=== PATIENT | male | born 1980 | race Caucasian/White ===

== ENCOUNTER 2020-06-07 00:04 | Inpatient (IN) | payer OTHER ==
[~2020-06-07] VITALS: Ht 175.3 cm; Wt 86.2 kg
--- NOTE | 2020-06-07 00:20 | NUR ---
DR. RAJAN AT BEDSIDE FOR MSE.
[2020-06-07] MEDS ORDERED: IBUPROFEN 800 MG TABLET PO ONE (01:15)
[2020-06-07] MEDS ORDERED: IBUPROFEN 800 MG TABLET ONE (01:22)
[2020-06-07] MEDS ORDERED: IV NORMAL SALINE 1000 ML BAG IV ONE ×2 (02:15→03:00)
[2020-06-07 03:34] LABS: CREATININE 0.9 mg/dL (0.6-1.3); POTASSIUM 3.9 mmol/L (3.5-5.1)
[2020-06-07 03:36] LABS: BASOPHILS # (AUTO) 0.1 K/uL (0.0-8.0); BASOPHILS % (AUTO) 0.4 % (0.0-2.0); EOSINOPHILS % (AUTO) 0.3 % (0.0-7.0); ETHANOL < 3 MG/DL (0-0); HEMATOCRIT 40.8 % (36.7-47.1); HEMOGLOBIN 13.8 g/dL (12.5-16.3); LYMPHOCYTES # (AUTO) 1.2 K/uL (20.0-40.0); LYMPHOCYTES % (AUTO) 8.4 % (20.5-51.5); MEAN CORPUSCULAR HEMOGLOBIN 30.6 uug (23.8-33.4); MEAN CORPUSCULAR HGB CONC 34 g/dL (32.5-36.3); MEAN CORPUSCULAR VOLUME 90.7 fL (73.0-96.2); MONOCYTES # (AUTO) 0.6 K/uL (2.0-10.0); NEUTROPHILS # (AUTO) 12.6 K/uL (1.8-8.9); NEUTROPHILS % (AUTO) 86.9 % (38.5-71.5); PLATELET COUNT (AUTO) 249 K/uL (152-348); WHITE BLOOD COUNT (AUTO) 14.5 K/uL (3.6-10.2)
[2020-06-07 03:46] LABS: BILIRUBIN,DIRECT 0.1 mg/dL (0.0-0.2); BILIRUBIN,TOTAL 0.3 mg/dL (0.2-1.0); THYROID STIMULATING HORMONE 1.142 mIU/mL (0.358-3.740); TOTAL PROTEIN, SERUM 7.1 g/dL (6.4-8.2)
[2020-06-07] MEDS ORDERED: PANTOPRAZOLE SODIUM 40 MG TABLET.DR PO ONE ×2 (04:00→04:02)
[2020-06-07] MEDS ORDERED: ASPIRIN 325 MG TABLET PO ONE (04:00)
[2020-06-07] MEDS ORDERED: ASPIRIN 325 MG TABLET ONE (04:02)
[2020-06-07] MEDS ORDERED: METOPROLOL TARTRATE 5 MG/5 ML VIAL IVP ONE ×2 (04:10→04:15)
--- NOTE | 2020-06-07 04:21 | NUR ---
COVID swab collected and dropped off at lab.
--- NOTE | 2020-06-07 05:43 | NUR ---
Real laughlind, Freddie Boucher electronic scale tester.
--- NOTE | 2020-06-07 06:08 | NUR ---
Spoke to Pam from lab, raj for covid swab has not picked up specimen yet. Will follow up.
--- NOTE | 2020-06-07 06:12 | NUR ---
Pt. admitted to tele , under care of rFeddie Boucher NP. Belongs List completed. covid results pending.
[2020-06-07 06:29] LABS: *AMPHETAMINE, URINE NEGATIVE (NEGATIVE); *BARBITURATE, URINE NEGATIVE (NEGATIVE); *CANNABINOID, URINE NEGATIVE (NEGATIVE); *COCCAINE, URINE NEGATIVE (NEGATIVE); *OPIATE, URINE NEGATIVE (NEGATIVE); *PHENCYCLIDINE SCREEN,URINE NEGATIVE (NEGATIVE)
--- NOTE | 2020-06-07 07:06 | NUR ---
Report to COERY Aparicio.
--- NOTE | 2020-06-07 07:59 | NUR ---
PT denies N/V and pain at this time. Breakfast tray provided.
[2020-06-07 08:20] VITALS: BP 122/78
[2020-06-07] MEDS ORDERED: IV NS 1000 ML 1,000 ML IV PRN (11:14)
[2020-06-07] MEDS ORDERED: ACETAMINOPHEN 325 MG TABLET PO PRN (11:15)
[2020-06-07] MEDS ORDERED: MORPHINE SULFATE 2 MG/1 ML DISP.SYRIN IV PRN (11:15)
[2020-06-07] MEDS ORDERED: NITROGLYCERIN 0.4 MG/TAB BOTTLE SL PRN (11:15)
[2020-06-07] MEDS ORDERED: ONDANSETRON 4 MG/2 ML VIAL IV PRN (11:15)
[2020-06-07] MEDS ORDERED: MAG HYDROX/AL HYDROX/SIMETH 30 ML LIQUID UDC PO PRN (11:15)
[2020-06-07] MEDS ORDERED: DOCUSATE SODIUM 100 MG CAPSULE PO PRN (11:15)
[2020-06-07 11:43] VITALS: BP 117/68
[2020-06-07] MEDS ORDERED: IV NORMAL SALINE 500 ML IV ONE (14:00)
[2020-06-07 14:58] LABS: *BILIRUBIN,URIN NEGATIVE (NEGATIVE); *CLARITY,URINE CLEAR (CLEAR); *COLOR,URINE YELLOW (YELLOW); *KETONES,URINE NEGATIVE (NEGATIVE); *UROBILINOGEN,URINE 0.2 E.U./dl (NORMAL); LEUKOCYTE ESTERASE ,URINE NEGATIVE (NEGATIVE); NITRITE, URINE NEGATIVE (NEGATIVE); UGLUCOSE NEGATIVE (NEGATIVE)
[2020-06-07 15:34] LABS: *BLOOD, URINE TRACE (NEGATIVE)
[2020-06-07 16:00] VITALS: BP 115/66
[2020-06-07 18:17] LABS: BACTERIA,URINE NONE SEEN /HPF (NONE SEEN); SQUAMOUS EPITHELIAL CELL,UR FEW /HPF (NONE SEEN); WBC,URINE 0-3 /HPF (0-3)
--- NOTE | 2020-06-07 19:30 | NUR ---
RECEIVED PT IN NO ACUTE DISTRESS. PT AWAKE, ALERT AND ORIENTEDX4. IV INTACT. PT ASKING FOR ORTHO CONSULT . SAFETY AND COMFORT PROVIDED. WILL CONTINUE TO .
--- NOTE | 2020-06-07 20:06 | NUR ---
PT CONCERNED THAT HE NEEDS ORTHO CONSULT. NOTIFY DR. AARON MARIANOING PT CONCERN. SAID SHE ALREADY INFORMED HIM.
[2020-06-07 20:21] VITALS: BP 124/68
[2020-06-07] MEDS: SIMVASTATIN 10 MG TABLET PO SCH ×2 (21:00→21:09)
--- NOTE | 2020-06-07 21:16 | NUR ---
PT REFUSED HIS ZOCOR. PT SAID HE DOESN'T TAKE IT BEFORE. WASTED MEDICATION IN THE PYXIS. PT IN NO ACUTE DISTRESS.
--- NOTE | 2020-06-07 21:46 | NUR ---
NOTIFY DR. BENNETT REGARDING PT CONCERNED REGARDING ULTRASOUND RETROPERITONEAL WILL BE AFTER THE CARDIAC CTA. SAID "IT WILL NOT AFFECT THE OTHER. THE RENAL ULTRASOUND DOES NOT NEED TO BE DONE BEFORE THE CTA." WHICH I RELAY THE MESSAGE TO THE PT.
--- NOTE | 2020-06-07 23:50 | NUR ---
INFORMED PT TO BE NPO FOR PROCEDURE TOMORROW. PT AWARE.
[2020-06-08] VITALS: BP 120/54
[2020-06-08 04:30] VITALS: BP 114/69
--- NOTE | 2020-06-08 06:12 | NUR ---
PT SLEPT INTERMITTENTLY. PT IN NO ACUTE DISTRESS. IV INTACT. PT WITH SLING ON HIS RIGHT JOSE ALFREDO SHOULDER. WAITING FOR LEARNING SPECIALIST TO GO CANTIL. SAFETY AND COMFORT PROVIDED. WILL ENDORSE TO INCOMING NURSE FOR CONTINUITY OF CARE.
--- NOTE | 2020-06-08 06:39 | NUR ---
FOLLOWUP ON THE RIDE OF THE PT. MECHANICAL CAD DESIGNER TOLD ME PT WILL BE PICKED UP AT 0700H.
--- NOTE | 2020-06-08 07:15 | NUR ---
Received patient sitting up in bed with no sign of respiratory distress noted. Patient is alert and oriented times 4. IV in tact left arm AC 20 gauge heplock. Patient is currently NPO and awaiting transport to [place] for Cardiac CTA. Safety precautions in place, bed in the lowest position and locked with call light and belongings within reach. Will continue to monitor.
--- NOTE | 2020-06-08 07:29 | NUR ---
[id number] PICKED UP THE PT. REPORT AND PAPERS FOR TICKET TO RIDE GIVEN. PT STABLE AND IN NO ACUTE DISTRESS. PT WHEELED OUT VIA GURNEY.
--- NOTE | 2020-06-08 07:30 | NUR ---
Patient picked up by Kevon (Highway Painter Helper) with [facility] ambulance service number [id number]. Patient is in stable condition with no sign of respiratory distress noted.
[2020-06-08] MEDS ORDERED: ASPIRIN EC 81 MG TABLET.DR PO SCH (09:00)
[2020-06-08] MEDS ORDERED: ASPIRIN 325 MG TABLET PO SCH (09:00)
--- NOTE | 2020-06-08 10:00 | NUR ---
Patient returned back to unit by ambulance transport service. Received patient stable with no sign of respiratory distress. Repost given by Kevon (Delbert) is that cardiac CTA could not be completed because left arm swole up when they tried to inject contrast dye. Upon assessment patient left arm is swollen with a heat pack on. Recommended removing for 20 minutes and gave patient a new warm pack to apply after 20 minutes is up. Will continue to monitor.
[2020-06-08 11:50] VITALS: BP 112/62
[2020-06-08 11:56] LABS: BASOPHILS % (AUTO) 0.3 % (0.0-2.0); EOSINOPHILS # (AUTO) 0.2 K/uL (0.0-0.7); EOSINOPHILS % (AUTO) 1.5 % (0.0-7.0); HEMATOCRIT 44.2 % (36.7-47.1); HEMOGLOBIN 14.9 g/dL (12.5-16.3); LYMPHOCYTES % (AUTO) 16.9 % (20.5-51.5); MEAN CORPUSCULAR HEMOGLOBIN 30.5 uug (23.8-33.4); MEAN CORPUSCULAR HGB CONC 34 g/dL (32.5-36.3); MEAN CORPUSCULAR VOLUME 90.6 fL (73.0-96.2); MONOCYTES # (AUTO) 0.9 K/uL (2.0-10.0); MONOCYTES % (AUTO) 7.7 % (0.0-11.0); NEUTROPHILS # (AUTO) 8.6 K/uL (1.8-8.9); NEUTROPHILS % (AUTO) 73.6 % (38.5-71.5); PLATELET COUNT (AUTO) 273 K/uL (152-348); RED BLOOD CELL COUNT(AUTO) 4.88 MIL/uL (4.06-5.63); WHITE BLOOD COUNT (AUTO) 11.7 K/uL (3.6-10.2)
[2020-06-08 12:04] LABS: MAGNESIUM 2.2 mg/dL (1.8-2.4); PHOSPHOROUS 3.7 mg/dL (2.5-4.9); POTASSIUM 3.9 mmol/L (3.5-5.1)
[2020-06-08 12:11] LABS: THYROID STIMULATING HORMONE 1.175 mIU/mL (0.358-3.740)
--- NOTE | 2020-06-08 13:00 | NUR ---
Patient had concerns about bruising on the left arm. He stated that he was worried about the bruising that it had gotten bigger and spread on his wrist. Made MD aware.
--- NOTE | 2020-06-08 14:00 | NUR ---
MD Dr Rushing in with patient.
[2020-06-08] MEDS ORDERED: SIMV10TA98 PO (14:44)
[2020-06-08] MEDS ORDERED: ASPI-618 PO (14:44)
--- NOTE | 2020-06-08 15:15 | NUR ---
MD aware of patient's concerns. Says he will contact radiologist regarding the picture taken of the bruising on the left arm. Theater Set Production Designer for 3rd floor also made aware of the situation and is in communication with the patient.
--- NOTE | 2020-06-08 15:45 | NUR ---
MD conclusion is that the bruising is consistent with erythema and recommends patient teaching on what signs and symptoms to look for concerning infection and cellulitis. Will continue to monitor.
[2020-06-08 16:00] VITALS: BP 113/69
--- NOTE | 2020-06-08 16:30 | NUR ---
Walked patient down to the lobby with all his belongings. All discharge paperwork are in the patient's possession. Patient left in stable condition. No sign of respiratory distress noted. Wrist band taken off and patient did not have an IV access at discharge. Patient teaching done on what to look for regarding sign and symptoms of infection and cellulitis of the arm.
== END 2020-06-08 16:30 | disposition home or self-care (01) | DRG 342 ==
LOC: ER 00:09 → TELE3 08:08
PROVIDERS: ADMIT Registered Nurse; ATTEND Internal Medicine
PROC: 0RSJXZZ Reposition Right Shoulder Joint, External Approach (ICD-10-PCS; principal; 2020-06-07)
DX: S43.014A Anterior dislocation of right humerus, initial encounter (principal); Y04.0XXA Assault by unarmed brawl or fight, initial encounter; Y92.89 Other specified places as the place of occurrence of the external cause; M04.1 Periodic fever syndromes; E86.0 Dehydration; D72.829 Elevated white blood cell count, unspecified; E66.9 Obesity, unspecified; Z68.28 Body mass index [BMI] 28.0-28.9, adult; I21.A1 Myocardial infarction type 2; Z82.49 Family history of ischemic heart disease and other diseases of the circulatory system; E78.5 Hyperlipidemia, unspecified; M50.30 Other cervical disc degeneration, unspecified cervical region
CPT/HCPCS: 36415; 70030-TC; 70450; 71045; 72125; 73030; 76770; 80307; 83735; 84100; 84443; 85025; 85730; 93005; 93307; G0378; G0480; J3490; J7030